=== PATIENT | male | born 1975 | race Hispanic/Latino ===

== ENCOUNTER 2023-10-26 11:04 | Emergency (ER) | payer MEDICARE ==
[~2023-10-26] VITALS: Ht 167.6 cm; Wt 108.0 kg
[~2023-10-26 11:04] MED LIST: CLINDAMYCIN HC150 MG PO
[2023-10-26 11:39] VITALS: PULSE 64; RESP 17; TEMP 97.9; O2SAT 100
[2023-10-26] MEDS: TRAMADOL HCL 50 MG TAB PO ONE (12:39)
== END 2023-10-26 14:19 | disposition home or self-care (01) ==
LOC: ER 11:37
DX: S90.31XA Contusion of right foot, initial encounter (principal); I10 Essential (primary) hypertension; E11.9 Type 2 diabetes mellitus without complications; J44.9 Chronic obstructive pulmonary disease, unspecified; Z95.2 Presence of prosthetic heart valve; E78.5 Hyperlipidemia, unspecified
CPT/HCPCS: 99283

== ENCOUNTER 2023-11-01 19:55 | Inpatient (IN) | payer MEDICARE, OTHER ==
[~2023-11-01] VITALS: Ht 170.2 cm; Wt 125.6 kg
[2023-11-01 20:08] VITALS: TEMP 98.2
[2023-11-01 20:30] LABS: BASOPHILS # (AUTO) 0.1 (0.0-0.1); BASOPHILS % 0.5 % (0.0-1.0); EOSINOPHILS % 7.8 % (0.0-6.0); HEMATOCRIT 44.2 % (38.2-49.6); HEMOGLOBIN 13.8 g/dL (14.0-18.0); LYMPHOCYTES # (AUTO) 3.6 (1.0-3.2); LYMPHOCYTES % 26.9 % (18.0-39.1); MEAN CORPUSCULAR HEMOGLOBIN 27.9 pg (28-32); MEAN CORPUSCULAR HGB CONC 31.2 g/dL (31-35); MEAN CORPUSCULAR VOLUME 89.3 fL (81-99); MONOCYTES # (AUTO) 2.1 (0.2-0.8); MONOCYTES % 15.6 % (4.4-11.3); NEUTROPHILS # (AUTO) 6.5 (2.1-6.9); PLATELET COUNT 254 x10e3/uL (140-360); RED BLOOD COUNT 4.95 x10e6/uL (4.3-5.7); RED CELL DISTRIBUTION WIDTH 17.9 % (11.7-14.4); WHITE BLOOD COUNT 13.25 x10e3/uL (4.8-10.8)
[2023-11-01] MEDS ORDERED: Vancomycin IV 1 GM in SODIUM CHLORIDE 0.9% 250ML 250 ML IV SCH (20:30)
[2023-11-01 20:48] LABS: ALBUMIN 4.6 g/dL (3.5-5.0); ALBUMIN/GLOBULIN RATIO 1.3 (0.8-2.0); ANION GAP 19.4 mmol/L (8-16); BILIRUBIN,TOTAL 0.4 mg/dL (0.2-1.2); CREATININE, SERUM 2.4 mg/dL (0.72-1.25); POTASSIUM 4.4 mmol/L (3.5-5.1); TOTAL PROTEIN 8.2 g/dL (6.5-8.1)
[2023-11-01] MEDS: DEXTROSE 50% SYRINGE 50 ML IV STA (20:56)
[2023-11-01] MEDS: INSULIN REGULAR, HUMAN 100 UNIT/1 ML SQ SCH (21:00)
[2023-11-01] MEDS ORDERED: DEXTROSE 50% SYRINGE 50 ML IV ONE (21:00)
[2023-11-01] MEDS ORDERED: DEXTROSE 50% SYRINGE 50 ML IV PRN (21:00)
[2023-11-01] MEDS ORDERED: Vancomycin IV 1 GM in SODIUM CHLORIDE 0.9% 250ML 250 ML IV ONE (21:00)
[2023-11-01] MEDS: SODIUM CHLORIDE 0.9% 1000ML 1,000 ML IV ONE (21:13)
[2023-11-01] MEDS: Vancomycin IV 1 GM in SODIUM CHLORIDE 0.9% 250ML 250 ML IV ONE (21:30)
[2023-11-01 22:00] VITALS: PULSE 85; RESP 19
[2023-11-01] MEDS ORDERED: BUSPIRONE HCL10 MG PO (23:27)
[2023-11-01] MEDS ORDERED: GABAPENTIN300 MG PO (23:27)
[2023-11-01] MEDS ORDERED: METOPROLOL TART50 MG PO (23:27)
[2023-11-01] MEDS ORDERED: BELSOMRA10 MG PO (23:27)
[2023-11-01] MEDS ORDERED: MOUNJARO10 MG/0.5 IJ (23:27)
[2023-11-01] MEDS ORDERED: LISINOPRIL40 MG PO (23:27)
[2023-11-01] MEDS ORDERED: ELIQUIS5 MG PO (23:27)
[2023-11-01] MEDS ORDERED: GLIPIZIDE10 MG PO (23:27)
[2023-11-01] MEDS ORDERED: METHOCARBAMOL500 MG PO (23:27)
[2023-11-01] MEDS ORDERED: ROPINIROLE HCL1 MG PO (23:27)
[2023-11-01] MEDS ORDERED: TRADJENTA5 MG PO (23:27)
[2023-11-01] MEDS ORDERED: OMEPRAZOLE40 MG PO (23:27)
[2023-11-01] MEDS ORDERED: ATORVASTATIN CA40 MG PO (23:27)
[2023-11-01] MEDS ORDERED: DULOXETINE HCL20 MG PO (23:27)
[2023-11-01] MEDS ORDERED: BUMETANIDE1 MG PO (23:27)
[2023-11-01] MEDS ORDERED: KLOR-CON M2020 MEQ PO (23:27)
[2023-11-01] MEDS ORDERED: METOLAZONE2.5 MG PO (23:27)
[2023-11-01] MEDS ORDERED: TRAZODONE HCL150 MG PO (23:27)
[2023-11-01] MEDS ORDERED: TAMSULOSIN PO (23:27)
[2023-11-01] MEDS ORDERED: HYDRALAZINE HCL50 MG PO (23:27)
[2023-11-01] MEDS ORDERED: TRELEGY ELLIPT1 EACH (23:46)
[2023-11-01] MEDS ORDERED: OMEGA-3 ACID ETH1 GM PO (23:46)
[2023-11-01 23:51] VITALS: BP 120/75; PULSE 76; RESP 18; TEMP 98.9; O2SAT 100
[2023-11-01 23:59] VITALS: BP 120/76; PULSE 76; RESP 18; TEMP 98.9; O2SAT 100
[2023-11-02] VITALS (10 sets, daily range): BP systolic 95–158; BP diastolic 53–94; PULSE 69–120; RESP 16–20; TEMP 97.4–98.9; O2SAT 95–100
[2023-11-02 05:45] LABS: BASOPHILS # (AUTO) 0.1 (0.0-0.1); EOSINOPHILS % 8.6 % (0.0-6.0); HEMATOCRIT 40.1 % (38.2-49.6); HEMOGLOBIN 12.7 g/dL (14.0-18.0); LYMPHOCYTES % 25.2 % (18.0-39.1); MEAN CORPUSCULAR HEMOGLOBIN 27.7 pg (28-32); MEAN CORPUSCULAR HGB CONC 31.7 g/dL (31-35); MEAN CORPUSCULAR VOLUME 87.6 fL (81-99); MONOCYTES # (AUTO) 1.7 (0.2-0.8); MONOCYTES % 14.6 % (4.4-11.3); NEUTROPHILS % 50.3 % (38.7-80.0); PLATELET COUNT 249 x10e3/uL (140-360); RED BLOOD COUNT 4.58 x10e6/uL (4.3-5.7); RED CELL DISTRIBUTION WIDTH 17.8 % (11.7-14.4); WHITE BLOOD COUNT 11.88 x10e3/uL (4.8-10.8)
[2023-11-02 06:31] LABS: ALBUMIN 3.9 g/dL (3.5-5.0); ALBUMIN/GLOBULIN RATIO 1.2 (0.8-2.0); ANION GAP 16.9 mmol/L (8-16); BILIRUBIN,TOTAL 0.5 mg/dL (0.2-1.2); CALCIUM 9.4 mg/dL (8.4-10.2); CREATININE, SERUM 1.98 mg/dL (0.72-1.25); POTASSIUM 3.9 mmol/L (3.5-5.1); TOTAL PROTEIN 7.2 g/dL (6.5-8.1)
[2023-11-02] MEDS: METOPROLOL TARTRATE 50 MG TAB PO SCH (09:00)
[2023-11-02] MEDS: DULOXETINE HCL 20 MG DELAYED RELEASE PO SCH (09:31)
[2023-11-02] MEDS: APIXABAN 2.5 MG TABLET PO SCH (09:31)
[2023-11-02] MEDS: TAMSULOSIN HCL 0.4 MG CAP PO SCH (09:31)
[2023-11-02] MEDS: PANTOPRAZOLE SOD 40 MG TABEC PO SCH (09:31)
[2023-11-02] MEDS: BUMETANIDE 1 MG TAB PO SCH (09:32)
[2023-11-02] MEDS: BUSPIRONE HCL 10 MG TABLET PO SCH (09:32)
[2023-11-02] MEDS: GABAPENTIN 300 MG CAP PO SCH (09:32)
[2023-11-02] MEDS: POTASSIUM CHLORIDE 20 MEQ TAB CR PO SCH (09:32)
[2023-11-02] MEDS: MUPIROCIN 2% OINT 22 GM TUBE TOP SCH (11:30)
[2023-11-02] MEDS: METHOCARBAMOL 500 MG TAB PO PRN (11:46)
[2023-11-02] MEDS: ROPINIROLE HCL 1 MG TAB PO SCH (20:52)
[2023-11-02] MEDS: TRAZODONE HCL 50 MG TAB PO SCH (20:53)
[2023-11-02] MEDS: ATORVASTATIN 40 MG TAB PO SCH (20:53)
[2023-11-02 21:06] LABS: BILIRUBIN,URINE NEGATIVE (NEGATIVE); CLARITY,URINE SL CLOUDY (CLEAR); COLOR,URINE YELLOW (YELLOW); GLUCOSE, URINE 500 (NEGATIVE); KETONES,URINE NEGATIVE (NEGATIVE); LEUKOCYTE ESTERASE ,URINE TRACE (NEGATIVE); NITRITE,URINE NEGATIVE (NEGATIVE); PH,URINE 5.5 (5 - 7); PROTEIN,URINE DIPSTICK NEGATIVE (NEGATIVE); URINE UROBILINOGEN 0.2 mg/dL (0.2 - 1)
[2023-11-02 21:17] LABS: EPITHELIAL CELLS,URINE MODERATE /LPF; RBC,URINE 0-5 /HPF (0-5); WBC,URINE (MAN) 0-5 /HPF (0-5)
[2023-11-03] VITALS (11 sets, daily range): BP systolic 107–138; BP diastolic 68–91; PULSE 62–92; RESP 16–21; TEMP 97.7–99; O2SAT 94–100
[2023-11-03] MEDS: Morphine 4mg INJECTION 4 MG/ML INJ IV PRN (01:36)
[2023-11-03] MEDS: ONDANSETRON HCL INJ 2MG/ML 2ML 2 MG/ML VIAL IV PRN (01:37)
[2023-11-03 05:11] LABS: BASOPHILS # (AUTO) 0.1 (0.0-0.1); BASOPHILS % 0.9 % (0.0-1.0); EOSINOPHILS # (AUTO) 0.9 (0.0-0.4); EOSINOPHILS % 6.8 % (0.0-6.0); HEMATOCRIT 42.1 % (38.2-49.6); HEMOGLOBIN 13.4 g/dL (14.0-18.0); LYMPHOCYTES # (AUTO) 3.3 (1.0-3.2); LYMPHOCYTES % 25.8 % (18.0-39.1); MEAN CORPUSCULAR HEMOGLOBIN 27.8 pg (28-32); MEAN CORPUSCULAR HGB CONC 31.8 g/dL (31-35); MEAN CORPUSCULAR VOLUME 87.3 fL (81-99); MONOCYTES % 15.6 % (4.4-11.3); NEUTROPHILS # (AUTO) 6.5 (2.1-6.9); NEUTROPHILS % 50.5 % (38.7-80.0); PLATELET COUNT 277 x10e3/uL (140-360); RED BLOOD COUNT 4.82 x10e6/uL (4.3-5.7); RED CELL DISTRIBUTION WIDTH 17.5 % (11.7-14.4)
[2023-11-03 05:38] LABS: ANION GAP 16.1 mmol/L (8-16); CALCIUM 9.6 mg/dL (8.4-10.2); CREATININE, SERUM 1.97 mg/dL (0.72-1.25); POTASSIUM 4.1 mmol/L (3.5-5.1)
[2023-11-03] MEDS: CEFAZOLIN SODIUM 2 GM in SODIUM CHLORIDE 0.9% 100 ML IV SCH (14:46)
[2023-11-03] MEDS: LACTATED RINGER'S 1,000 ML INJ ONE (18:53)
[2023-11-04] VITALS (10 sets, daily range): BP systolic 105–123; BP diastolic 62–83; PULSE 58–82; RESP 17–18; TEMP 97.7–99.6; O2SAT 94–100
[2023-11-04] MEDS ORDERED: SODIUM CHLORIDE 0.9% 100 ML ONE (05:12)
[2023-11-04 06:00] LABS: ANION GAP 15.8 mmol/L (8-16); CALCIUM 9.6 mg/dL (8.4-10.2); CREATININE, SERUM 1.94 mg/dL (0.72-1.25); POTASSIUM 3.8 mmol/L (3.5-5.1)
[2023-11-04] MEDS: LACTATED RINGER'S 1,000 ML INJ ONE (18:09)
[2023-11-04] MEDS: BETAMETHASONE DISODIUM PHOS 6 MG/ML VIAL INJ ONE (20:43)
[2023-11-04] MEDS: LIDOCAINE HCL 1% 30ML-PF VIAL INJ ONE (20:43)
[2023-11-04] MEDS: BUPIVACAINE HCL 0.5% INJ 30 ML VIAL INJ ONE (20:43)
[2023-11-05] VITALS (10 sets, daily range): BP systolic 94–134; BP diastolic 57–73; PULSE 53–78; RESP 14–20; TEMP 97.7–98.3; O2SAT 95–100
[2023-11-05 05:01] LABS: BASOPHILS # (AUTO) 0.1 (0.0-0.1); BASOPHILS % 0.9 % (0.0-1.0); EOSINOPHILS % 8.6 % (0.0-6.0); HEMATOCRIT 44.3 % (38.2-49.6); HEMOGLOBIN 13.8 g/dL (14.0-18.0); LYMPHOCYTES # (AUTO) 2.9 (1.0-3.2); LYMPHOCYTES % 25.2 % (18.0-39.1); MEAN CORPUSCULAR HGB CONC 31.2 g/dL (31-35); MEAN CORPUSCULAR VOLUME 89.9 fL (81-99); MONOCYTES # (AUTO) 1.6 (0.2-0.8); PLATELET COUNT 266 x10e3/uL (140-360); RED BLOOD COUNT 4.93 x10e6/uL (4.3-5.7); RED CELL DISTRIBUTION WIDTH 17.2 % (11.7-14.4); WHITE BLOOD COUNT 11.66 x10e3/uL (4.8-10.8)
[2023-11-05 05:33] LABS: ANION GAP 16.5 mmol/L (8-16); CALCIUM 9.6 mg/dL (8.4-10.2); CREATININE, SERUM 1.7 mg/dL (0.72-1.25); POTASSIUM 4.5 mmol/L (3.5-5.1)
[2023-11-05] MEDS ORDERED: ENOXAPARIN SOD INJ 40 MG/0.4 ML SYR SC SCH (17:00)
[2023-11-05] MEDS: HYDROCODONE/APAP 5MG-325MG TAB PO PRN (19:15)
[2023-11-06] VITALS (11 sets, daily range): BP systolic 110–131; BP diastolic 65–74; PULSE 59–74; RESP 16–20; TEMP 97.6–98.7; O2SAT 94–100
[2023-11-06 05:20] LABS: BASOPHILS # (AUTO) 0.1 (0.0-0.1); BASOPHILS % 0.6 % (0.0-1.0); EOSINOPHILS % 9.6 % (0.0-6.0); HEMATOCRIT 45.6 % (38.2-49.6); HEMOGLOBIN 14.1 g/dL (14.0-18.0); LYMPHOCYTES # (AUTO) 3.1 (1.0-3.2); LYMPHOCYTES % 28.6 % (18.0-39.1); MEAN CORPUSCULAR HEMOGLOBIN 27.8 pg (28-32); MEAN CORPUSCULAR HGB CONC 30.9 g/dL (31-35); MEAN CORPUSCULAR VOLUME 89.9 fL (81-99); MONOCYTES # (AUTO) 1.6 (0.2-0.8); MONOCYTES % 14.6 % (4.4-11.3); NEUTROPHILS % 46.2 % (38.7-80.0); PLATELET COUNT 278 x10e3/uL (140-360); RED BLOOD COUNT 5.07 x10e6/uL (4.3-5.7); RED CELL DISTRIBUTION WIDTH 17.1 % (11.7-14.4); WHITE BLOOD COUNT 10.79 x10e3/uL (4.8-10.8)
[2023-11-06 05:46] LABS: CREATININE, SERUM 1.58 mg/dL (0.72-1.25)
[2023-11-06] MEDS: HYDROCODONE/APAP 10MG-325MG TAB PO PRN (14:58)
[2023-11-07] VITALS (12 sets, daily range): BP systolic 103–141; BP diastolic 58–77; PULSE 55–72; RESP 17–20; TEMP 97.6–98.4; O2SAT 94–100
[2023-11-07 05:18] LABS: BASOPHILS # (AUTO) 0.1 (0.0-0.1); BASOPHILS % 1.2 % (0.0-1.0); EOSINOPHILS # (AUTO) 1.1 (0.0-0.4); EOSINOPHILS % 10.1 % (0.0-6.0); HEMATOCRIT 41.1 % (38.2-49.6); HEMOGLOBIN 12.9 g/dL (14.0-18.0); LYMPHOCYTES # (AUTO) 2.7 (1.0-3.2); MEAN CORPUSCULAR HEMOGLOBIN 27.6 pg (28-32); MEAN CORPUSCULAR HGB CONC 31.4 g/dL (31-35); MEAN CORPUSCULAR VOLUME 87.8 fL (81-99); MONOCYTES # (AUTO) 1.7 (0.2-0.8); MONOCYTES % 15.9 % (4.4-11.3); NEUTROPHILS # (AUTO) 5.2 (2.1-6.9); NEUTROPHILS % 47.6 % (38.7-80.0); PLATELET COUNT 293 x10e3/uL (140-360); RED BLOOD COUNT 4.68 x10e6/uL (4.3-5.7); RED CELL DISTRIBUTION WIDTH 16.7 % (11.7-14.4); WHITE BLOOD COUNT 10.94 x10e3/uL (4.8-10.8)
[2023-11-07 05:54] LABS: ANION GAP 16.7 mmol/L (8-16); CALCIUM 9.7 mg/dL (8.4-10.2); CREATININE, SERUM 1.55 mg/dL (0.72-1.25); POTASSIUM 3.7 mmol/L (3.5-5.1)
[2023-11-07 07:21] LABS: SPE TOTAL PROTEIN 7.1
[2023-11-07] MEDS: INSULIN GLARGINE 100 UNITS/ML VIAL SQ SCH (20:32)
[2023-11-08] VITALS: BP 120/76; PULSE 70; RESP 20; TEMP 98.6; O2SAT 99
[2023-11-08 04:00] VITALS: BP 112/74; PULSE 60; RESP 20; TEMP 97; O2SAT 100
[2023-11-08 06:24] VITALS: PULSE 71; RESP 21; O2SAT 95
[2023-11-08 07:23] VITALS: BP 127/71; PULSE 60; RESP 19; TEMP 98.1; O2SAT 100
[2023-11-08 10:54] VITALS: BP 130/78; PULSE 61; RESP 16; TEMP 98.1; O2SAT 100
[2023-11-08 10:58] VITALS: BP 127/71; PULSE 60; RESP 19; TEMP 98; O2SAT 100
[2023-11-08] MEDS ORDERED: ONDANSETRON HCL 4 MG ORAL DISINTEGRATING TAB PO PRN (11:15)
[2023-11-08] MEDS: ACETAMINOPHEN 325 MG TAB PO PRN (12:05)
[2023-11-09 06:59] LABS: SPE ALPHA 1 GLOBULIN 0.3
[2023-11-09 07:01] LABS: GLOBULIN TOTAL 3.5; SPE GAMMA GLOBULIN 1.2
[2023-11-09 07:02] LABS: KAPPA/LAMBDA RATIO 1.41
== END 2023-11-08 12:35 | disposition home or self-care (01) | DRG 580 ==
LOC: ER 20:02 → ERHOLD 21:02 → MED/SURG2 22:55
PROVIDERS: ADMIT Internal Medicine; ATTEND Internal Medicine
PROC: 0KCV0ZZ Extirpation of Matter from Right Foot Muscle, Open Approach (ICD-10-PCS; principal; 2023-11-04)
DX: L03.115 Cellulitis of right lower limb (principal); I13.0 Hypertensive heart and chronic kidney disease with heart failure and stage 1 through stage 4 chronic kidney disease, or unspecified chronic kidney disease; N17.9 Acute kidney failure, unspecified; L02.611 Cutaneous abscess of right foot; E11.649 Type 2 diabetes mellitus with hypoglycemia without coma; I50.9 Heart failure, unspecified; E11.621 Type 2 diabetes mellitus with foot ulcer; I25.10 Atherosclerotic heart disease of native coronary artery without angina pectoris; N18.32 Chronic kidney disease, stage 3b; E78.5 Hyperlipidemia, unspecified; J44.9 Chronic obstructive pulmonary disease, unspecified; F41.9 Anxiety disorder, unspecified; F32.A Depression, unspecified; K21.9 Gastro-esophageal reflux disease without esophagitis; N40.0 Benign prostatic hyperplasia without lower urinary tract symptoms; K22.70 Barrett's esophagus without dysplasia; S90.31XA Contusion of right foot, initial encounter; G89.4 Chronic pain syndrome; M19.90 Unspecified osteoarthritis, unspecified site; W20.8XXA Other cause of strike by thrown, projected or falling object, initial encounter; Z79.01 Long term (current) use of anticoagulants; Z79.4 Long term (current) use of insulin; Z79.85 Long-term (current) use of injectable non-insulin antidiabetic drugs; Z79.84 Long term (current) use of oral hypoglycemic drugs; Z95.1 Presence of aortocoronary bypass graft; Z95.3 Presence of xenogenic heart valve; Z90.81 Acquired absence of spleen; Z86.73 Personal history of transient ischemic attack (TIA), and cerebral infarction without residual deficits; F17.200 Nicotine dependence, unspecified, uncomplicated
CPT/HCPCS: 36415; 76770; 80048; 80053; 81001; 81015; 82948; 83036; 83605; 84165; 85025; 87040; 87071; 87205; 94660; 94799; 99252; 99284; J1815; J2001; J2270; J2405; J2543; J7030; J7050; J7799